=== PATIENT | female | born 2005 ===

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

== ENCOUNTER 2023-02-21 11:44 | Emergency (ER) | payer OTHER, MEDICAID, SELFPAY ==
--- NOTE | ~2023-02-21 | US_ITS ---
EXAMINATION: US OBSTETRICAL ULTRASOUND CLINICAL INFORMATION: Positive home test, pelvic pain. COMPARISON: None available. LMP: End december. Gestational age by maternal dates is unknown. Estimated date of delivery by maternal dates is unknown. TECHNIQUE: Routine transabdominal imaging of pelvis is performed. FINDINGS: There is a single intrauterine gestational sac with visible yolk sac, embryo/fetus, and cardiac activity. There is no significant subchorionic hemorrhage or hematoma. HR: 103 beats per minute. CRL (crown rump length): 0.23 cm (5 weeks and 6 days +/- 4 days). L[place] (estimated date of delivery): 10/18/2023 +/- 4 days. MATERNAL ADNEXA: The right maternal ovary measures 2.4 x 1.5 x 1.7 cm. It appears unremarkable The left maternal ovary measures 2.9 x 2.2 x 2.7 cm. There is a small corpus luteal cyst measuring 2.0 x 1.5 x 2.0 cm There is no significant maternal adnexal mass. No maternal pelvic ascites. US/US OB pelvic and transvaginal IMPRESSION: 1. Single live intrauterine gestation with ultrasound gestational age of 5 weeks 6 days +/- 4 days. 2. Estimated date of delivery is 10/18/2023 +/- 4 days. 3. No maternal adnexal mass or pelvic ascites.
--- NOTE | 2023-02-21 11:46 | ED_ITS ---
HPI - Female Genitourinary General Chief complaint: Abdominal Pain Stated complaint: pelvic pain/ positive preg test Time Seen by Provider: 02/21/23 12:02 Source: patient and family Mode of arrival: ambulatory Limitations: no limitations History of Present Illness HPI Narrative: 17 yo female, , with PMHx of asthma and HSV, presents to the ED today with pelvic pain and dysuria x1 day. Patient states that she woke up yesterday morning with N/V prompting her to take an at-home test which returned positive. Last night began having symptoms of intermittent diffuse pelvic pain/pressure along with burning after urination. No radiation of pain. LMP was at the end of December (cannot provide exact date). Denies dizziness, fever, chills, vaginal bleeding or discharge, hematuria, flank or back pain. Denies concern for STIs. Denies previous pregnancies. Related Data Previous Rx's Medication Instructions Recorded albuterol sulfate 90 mcg/actuation 2 puff inhalation Q6H PRN 03/25/20 aerosol inhaler (ProAir HFA) shortness of breath or wheezing #6.7 grams acyclovir 5 % topical ointment 1 appl topical 6XD 7 days #30 grams 05/16/22 doxycycline monohydrate 100 mg 100 mg PO BID 10 days #20 tabs 05/16/22 tablet nitrofurantoin 100 mg PO BID 7 days #14 caps 05/16/22 monohydrate/macrocrystals 100 mg capsule (Macrobid) cephalexin 500 mg capsule 500 mg PO QID 7 days #28 caps 02/21/23 Allergies Allergy/AdvReac Type Severity Reaction Status Date / Time No Known Allergies Allergy Verified 02/21/23 11:46 Review of Systems 2 Review of Systems: Constitutional: No fever, chills, fatigue, night sweats, weight changes ENT/Mouth: No ear pain, hearing loss, nasal congestion, sinus pain, rhinorrhea, sore throat Eyes: No eye pain, swelling, redness, vision changes, discharge Cardio: No chest pain, palpitations, ALARCON, orthopnea, peripheral edema Pulm: No SOB, cough, sputum, wheezing, dyspnea, hemoptysis GI: No nausea, vomiting, hematemesis, + abdominal pain, No diarrhea, constipation, hematochezia, melena : No irregular bleeding, + dysuria, No frequency, urgency, hesitancy, hematuria, flank pain, urinary flow changes, urinary incontinence or retention MSK: No back pain, neck pain, joint pain, myalgias Skin: No lesions, rashes Neuro: No weakness, numbness, paresthesias, LOC, dizziness, headache All other systems reviewed and are negative. [facility] Past Medical History Attestation statement: The following information was validated with the patient. Source: old records reviewed and nursing notes reviewed Medical History Asthma Social History Social History Advance Directives: No Advance Directives Information Provided: Yes Physical Exam 2 Vital Signs: Vital Signs: Last Vital Signs Temp 98 F 02/21/23 11:47 Pulse 82 02/21/23 14:06 Resp 18 02/21/23 14:06 BP 117/72 02/21/23 14:06 Pulse Ox 100 02/21/23 14:06 O2 Del Method Room Air 02/21/23 14:06 BMI result Body Mass Index 22.4 Vital signs stable. General: Nontoxic appearing. NAD Skin: Warm and dry. No rashes or lesions. Head: Normocephalic, atraumatic. EENT: PERRLA. EOM intact. Moist mucous membranes. Neck: Supple without LAD. Normal ROM. Trachea midline.? Cardiac: Chest wall symmetric. RRR. S1 and S1 appreciated. Lungs: CTA b/l. No rales, rhonchi, or wheezes. Normal respiratory effort without accessory muscle use. Abdomen: No visible lesions or scars. Soft, ND, mildly tender to palpation of the suprapubic region b/l without rebound tenderness or guarding. +BS x4.?No CVAT b/l. Ext: UE/LE atraumatic. Full ROM intact. Capillary refill <2 sec throughout. Pulses 2+ throughout. No edema, cyanosis, or clubbing. Neuro: AO x3. Normal speech. CN 2-12 grossly intact. Ambulating with steady gait. Psych: Appropriate mood and affect. Responds appropriately to questions. Pelvic exam deferred. Course Course Course Narrative: This is an RME: Additional HPI, ROS, PE not included below will be deferred to primary provider. Patient is a 17-year-old female who presents to the emergency department for evaluation of pelvic pain, dysuria, and a home positive test. Denies vaginal bleeding, R back pain, nausea and vomiting, dizziness. LMP end og December, does not provide specific date. Plan: Urinalysis, hCG, serum labs, decision of imaging of defer to primary provider Reevaluation(s) Reevaluation #1: 1236-- CBC without leukocytosis or anemia. UA with moderate amount of squamous epithelial cells > likely contamination. Will obtain new sample to confirm UTI. Chemistry without acute electrolyte abnormalities requiring intervention. Lipase WNL. Serum beta hCG 9614 > dated between 4-6 weeks gestational age > awaiting pelvic/TV ultrasound to confirm location. > beta hCG is positive > PTT/INR and Rh ordered. 1406 -- repeat UA showing infection > will start patient on antibiotics for UTI. Awaiting pelvic ultrasound results. 1530-- Pelvic US showing single, live intrauterine dating 5 weeks and 6 days > Informed patient of US and UA results. Cephalexin has been sent to patient's pharmacy for UTI treatment. Advised patient to take vit B6 for nausea. Educated patient on return precautions. Provided patient with OBGYN referral. All questions answered. Patient agreeable with plan. Stable for d/c. Medical Decision Making Medical Decision Making [facility] Narrative: 17 yo female, , with PMHx of asthma and HSV, presents to the ED today with pelvic pain and dysuria x1 day. VSS. Nontoxic appearing, in NAD. Abdomen soft, ND, mildly tender to palpation of the suprapubic region b/l without rebound tenderness or guarding, normoactive BS x4, no CVAT b/l. Pelvic exam deffered. Clinical concern for ovarian cyst vs IUP vs ectopic vs UTI vs nephrolithiasis vs renal colic vs pyelonephritis. Low suspicion for ovarian torsion, appendicitis, cholcystitis. Differential Diagnosis Differential Diagnoses: The differential diagnosis associated with the presentation includes As above. Admission/Observation Consideration of admission/observation: Escalation of care including admission/observation considered Lab Data [facility] Lab Attestation statement: I reviewed the patient's lab results. 02/21/23 11:59 02/21/23 11:59 Labs: Lab Results 09/29/23 09/29/23 09/29/23 Range/Units 11:59 12:30 13:02 WBC 8.3 (4.8-10.8) X10*3/uL RBC 4.44 (4.20-5.50) X10*6/uL Hgb 12.6 (12.0-16.0) g/dl Hct 37.2 (37.0-47.0) % MCV 83.8 (80.0-98.0) fL MCH 28.4 (27.0-33.0) pg MCHC 33.9 (31.0-35.0) g/dl RDW 12.3 (11.0-16.0) % Plt Count 259 (160-400) X10*3/uL MPV 10.3 (9.4-12.3) fL Immature Gran % (Auto) 0.2 (0.0-0.4) % Neut % (Auto) 71.1 (45-73) % Lymph % (Auto) 21.4 (20-40) % [place] % (Auto) 6.5 (2-11) % Eos % (Auto) 0.4 (0-4) % Baso % (Auto) 0.4 (0-2) % Lymph # (Auto) 1.8 (1.2-4.9) X10*3/uL [place] # (Auto) 0.5 (0.1-1.2) X10*3/uL Eos # (Auto) 0.0 (0.0-0.4) X10*3/uL Baso # (Auto) 0.0 (0.0-0.2) X10*3/uL Abs Immat Gran (auto) 0.02 (0.00-0.03) X10*3/uL Absolute Neuts (auto) 5.9 (2.0-8.3) x10*3/uL Absolute Nucleated RBC 0.000 (0.0-0.012) X10*3/uL Nucleated RBC % (auto) 0.0 (0.0-0.2) /100WBC PT (11.1-13.3) SEC INR (0.9-1.1) Sodium 139 (135-145) mmol/L Potassium 3.6 (3.3-5.1) mmol/L Chloride 106 (96-108) mmol/L Carbon Dioxide 22 (22-29) mmol/L Anion Gap 15 (12-20) BUN 8 L (9-16) mg/dL Creatinine 0.76 (0.5-1.4) mg/dL Estim Creat Clear Calc 107.1 Estimated GFR > 60 Random Glucose 68 (60-115) mg/dL Calcium 9.8 (8.4-10.2) mg/dL Magnesium 2.0 (1.6-2.6) mg/dL Total Bilirubin 0.6 (0.0-1.0) mg/dL AST 15 (5-31) U/L ALT 8 (0-31) U/L Alkaline Phosphatase 58 (39-117) U/L Total Protein 6.9 (6.5-8.0) g/dL Albumin 4.3 (3.5-5.0) g/dL Lipase 16 (8-78) U/L Beta HCG, Quant 9614 mIU/mL Urine Color Yellow Yellow Urine Appearance Clear Clear Urine pH 5.5 6.5 (5.0-9.0) Ur Specific [place] 1.020 1.020 (1.005-1.025) Urine Protein Negative Negative (Neg-Trace) mg/dL Urine Glucose (UA) Negative Negative (Negative) mg/dL Urine Ketones 15 Negative (Negative) mg/dL Urine Blood Negative Negative (Negative) Urine Nitrite Negative Negative (Negative) Ur Leukocyte Esterase Small (1+) H Moderate (2+) H (Negative) Urine RBC 0-2 0-2 (0-2) /HPF Urine WBC 6-10 H 11-20 H (0-5) /HPF Ur Squamous Epith Cells 3-5 3-5 (0-2) /HPF Urine Bacteria Trace 1+ (None Seen) Hyaline Casts 0-2 0-2 (0-2) /LPF COVID-19 ([facility]) (Negative) COVID-19 Clin Com Influenza Type A ([facility]) (Negative) Influenza Type B ([facility]) (Negative) Influenza A & B Note Blood Type O Positive 02/21/23 Range/Units 13:03 WBC (4.8-10.8) X10*3/uL RBC (4.20-5.50) X10*6/uL Hgb (12.0-16.0) g/dl Hct (37.0-47.0) % MCV (80.0-98.0) fL MCH (27.0-33.0) pg MCHC (31.0-35.0) g/dl RDW (11.0-16.0) % Plt Count (160-400) X10*3/uL MPV (9.4-12.3) fL Immature Gran % (Auto) (0.0-0.4) % Neut % (Auto) (45-73) % Lymph % (Auto) (20-40) % [place] % (Auto) (2-11) % Eos % (Auto) (0-4) % Baso % (Auto) (0-2) % Lymph # (Auto) (1.2-4.9) X10*3/uL [place] # (Auto) (0.1-1.2) X10*3/uL Eos # (Auto) (0.0-0.4) X10*3/uL Baso # (Auto) (0.0-0.2) X10*3/uL Abs Immat Gran (auto) (0.00-0.03) X10*3/uL Absolute Neuts (auto) (2.0-8.3) x10*3/uL Absolute Nucleated RBC (0.0-0.012) X10*3/uL Nucleated RBC % (auto) (0.0-0.2) /100WBC PT 12.1 (11.1-13.3) SEC INR 1.0 (0.9-1.1) Sodium (135-145) mmol/L Potassium (3.3-5.1) mmol/L Chloride (96-108) mmol/L Carbon Dioxide (22-29) mmol/L Anion Gap (12-20) BUN (9-16) mg/dL Creatinine (0.5-1.4) mg/dL Estim Creat Clear Calc Estimated GFR Random Glucose (60-115) mg/dL Calcium (8.4-10.2) mg/dL Magnesium (1.6-2.6) mg/dL Total Bilirubin (0.0-1.0) mg/dL AST (5-31) U/L ALT (0-31) U/L Alkaline Phosphatase (39-117) U/L Total Protein (6.5-8.0) g/dL Albumin (3.5-5.0) g/dL Lipase (8-78) U/L Beta HCG, Quant mIU/mL Urine Color Urine Appearance Urine pH (5.0-9.0) Ur Specific [place] (1.005-1.025) Urine Protein (Neg-Trace) mg/dL Urine Glucose (UA) (Negative) mg/dL Urine Ketones (Negative) mg/dL Urine Blood (Negative) Urine Nitrite (Negative) Ur Leukocyte Esterase (Negative) Urine RBC (0-2) /HPF Urine WBC (0-5) /HPF Ur Squamous Epith Cells (0-2) /HPF Urine Bacteria (None Seen) Hyaline Casts (0-2) /LPF COVID-19 ([facility]) Negative (Negative) COVID-19 Clin Com See Note Influenza Type A ([facility]) Negative (Negative) Influenza Type B ([facility]) Negative (Negative) Influenza A & B Note See Note Blood Type External Record Review External record reviewed: Inpatient record Discharge Plan Discharge Clinical Impression: UTI (urinary tract infection) during , Patient Disposition: Home, Self-Care Instructions: (ED), Urinary Tract Infection in Women (ED), Urinary Tract Infection in (ED) Additional Instructions: Your lab work today is reassuring. Your blood test is positive with a value of 9614. Your urine was positive for urinary tract infection. A 7 day course of antibiotics have been sent to your pharmacy. Take this as prescribed and do not miss any doses as the infection may return or worsen. Your pelvic ultrasound shows a live in your uterus measuring 5 weeks and 6 days with an expected due date of 10/18/2023. You have been provided with the printed ultrasound results. Please follow-up with [facility]. You have been provided a referral. Call them to make an appointment, they will not call you. You may take vitamin B6 for nausea as needed. Do not take ibuprofen. Take Tylenol for any pain or discomfort you may experience. Please return to the emergency department if your symptoms persist or worsen or you develop vaginal bleeding and abdominal pain. In the case of emergencies call 911. Prescriptions: New cephalexin 500 mg capsule 500 mg PO QID 7 Days Qty: 28 0RF No Action albuterol sulfate [ProAir HFA] 90 mcg/actuation HFA aerosol inhaler 2 puff inhalation Q6H PRN (Reason: shortness of breath or wheezing) Qty: 6.7 2RF doxycycline monohydrate 100 mg tablet 100 mg PO BID 10 Days Qty: 20 0RF nitrofurantoin monohyd/m-cryst [Macrobid] 100 mg capsule 100 mg PO BID 7 Days Qty: 14 0RF Rx Instructions: must administer with a meal/food acyclovir 5 % ointment 1 appl topical 6XD 7 Days Qty: 30 1RF Referrals: [facility] [Provider Group] [facility] [place] [facility] [place] Group] [facility] – [place] [facility] [Provider Group] Physician,None [Primary Care Provider] - Stand Alone Forms: Work/School Release Interventions: ED Discharge Assessment Last Done: 02/21/23 15:59 Discharge Date/Time: 02/21/23 16:00
[2023-02-21 11:47] VITALS: BP 128/77; PULSE 90; RESP 19; TEMP 36.6; O2SAT 99; BMI 22.4
[2023-02-21 12:04] LABS: MANUAL DIFF FLAG NO
[2023-02-21 12:07] LABS: Appearance Urine Clear; Color Urine Yellow; Glucose Urine UA Negative (Negative); Leukocyte Esterase Urine Small (1+) (Negative); Nitrite Urine Negative (Negative); PH 5.5 (5.0-9.0); UMIC TRIGGER UACC YES; Urine Blood Negative (Negative); Urine Ketones 15 mg/dL (Negative); Urine Protein Negative (Neg-Trace)
[2023-02-21 12:11] LABS: Bacteria Urine Trace (None Seen); Hyaline Casts Urine 0-2 /LPF (0-2); RBC Urine 0-2 /HPF (0-2); UACC Culture Trigger YES
[2023-02-21 12:14] LABS: Basophils Percent Auto 0.4 % (0-2); Eosinophils Percent Auto 0.4 % (0-4); Hematocrit 37.2 % (37.0-47.0); Hemoglobin 12.6 g/dl (12.0-16.0); Imm Gran Abs Auto 0.02 X10*3/uL (0.00-0.03); Imm Gran Pct Auto 0.2 % (0.0-0.4); Lymphocytes Absolute Auto 1.8 X10*3/uL (1.2-4.9); Lymphocytes Percent Auto 21.4 % (20-40); Mean Corpuscular HGB Conc 33.9 g/dl (31.0-35.0); Mean Corpuscular Hemoglobin 28.4 pg (27.0-33.0); Mean Corpuscular Volume 83.8 fL (80.0-98.0); Mean Platelet Volume 10.3 fL (9.4-12.3); Monocytes Absolute Auto 0.5 X10*3/uL (0.1-1.2); Monocytes Percent Auto 6.5 % (2-11); Neutrophils Absolute Auto 5.9 x10*3/uL (2.0-8.3); Neutrophils Percent Auto 71.1 % (45-73); Platelet Count 259 X10*3/uL (160-400); Red Blood Count 4.44 X10*6/uL (4.20-5.50); Red Cell Distribution Width 12.3 % (11.0-16.0); White Blood Count 8.3 X10*3/uL (4.8-10.8)
[2023-02-21 12:30] LABS: Alanine Aminotransferase 8 U/L (0-31); Albumin Level 4.3 g/dL (3.5-5.0); Alkaline Phosphatase 58 U/L (39-117); Anion Gap 15 (12-20); Aspartate Amino Transferase 15 U/L (5-31); Bilirubin Total 0.6 mg/dL (0.0-1.0); Blood Urea Nitrogen 8 mg/dL (9-16); Calcium 9.8 mg/dL (8.4-10.2); Carbon Dioxide 22 mmol/L (22-29); Chloride 106 mmol/L (96-108); Creatinine Clr Calc Pharmacy 107.1; Estimated Glomerular Filt Rate > 60; Glucose Random 68 mg/dL (60-115); HCG Quantitative 9614 mIU/mL; Lipase 16 U/L (8-78); Potassium 3.6 mmol/L (3.3-5.1); Sodium 139 mmol/L (135-145); Total Protein 6.9 g/dL (6.5-8.0)
[2023-02-21 12:39] LABS: Appearance Urine Clear; Color Urine Yellow; Glucose Urine UA Negative (Negative); Leukocyte Esterase Urine Moderate (2+) (Negative); Nitrite Urine Negative (Negative); PH 6.5 (5.0-9.0); UMIC TRIGGER UACC YES; Urine Blood Negative (Negative); Urine Ketones Negative (Negative); Urine Protein Negative (Neg-Trace)
[2023-02-21 12:43] LABS: Bacteria Urine 1+ (None Seen); Hyaline Casts Urine 0-2 /LPF (0-2); RBC Urine 0-2 /HPF (0-2); UACC Culture Trigger YES
[2023-02-21 13:16] LABS: Prothrombin Time 12.1 SEC (11.1-13.3)
[2023-02-21 13:37] LABS: IDNOW Serial# BCCEAD1C; Influenza A Negative (Negative); Influenza B2 Negative (Negative)
[2023-02-21 13:39] LABS: COVID-19 Test Negative (Negative); IDNOW Serial# 08D9AD1C
[2023-02-21 14:06] VITALS: BP 117/72; PULSE 82; RESP 18; O2SAT 100
== END 2023-02-21 16:00 | disposition home or self-care (01) ==
PROVIDERS: Nurse Practitioner Family; Physician Assistant Medical; Emergency Provider Emergency Medicine Emergency Medical Services
DX: O23.41 Unspecified infection of urinary tract in pregnancy, first trimester (principal); N39.0 Urinary tract infection, site not specified; R10.2 Pelvic and perineal pain; Z3A.01 Less than 8 weeks gestation of pregnancy; Z20.822 Contact with and (suspected) exposure to COVID-19; Z20.828 Contact with and (suspected) exposure to other viral communicable diseases; Z79.899 Other long term (current) drug therapy
CPT/HCPCS: 36415; 76801; 76817; 80053; 81001; 83690; 83735; 84702; 85025; 85610; 86900; 86901; 87086; 87088; 87186; 87502; 87635; 99283; 99284

== ENCOUNTER 2023-02-28 21:26 | Emergency (ER) | payer OTHER, MEDICAID, SELFPAY ==
[2023-02-28 21:46] VITALS: BP 119/48; PULSE 97; RESP 18; TEMP 36.9; O2SAT 100; BMI 23.7
[2023-02-28 23:02] VITALS: BP 135/67; PULSE 86; RESP 18; TEMP 36.8; O2SAT 100
--- NOTE | 2023-03-01 01:28 | PC.NURSE ---
pt no longer observed to be in room; per registration staff member pt was seen ambulating out of the ER.
== END 2023-03-01 01:35 | disposition left against medical advice (07) ==
PROVIDERS: Emergency Provider Emergency Medicine
DX: O23.41 Unspecified infection of urinary tract in pregnancy, first trimester (principal); R30.0 Dysuria; Z3A.01 Less than 8 weeks gestation of pregnancy
CPT/HCPCS: 81003; 99282; 99284